=== PATIENT | female | born 1990 | race Hispanic/Latino ===

== ENCOUNTER 2016-04-28 14:59 | Emergency (ER) | payer MEDICAID, OTHER ==
[~2016-04-28 14:59] MED LIST: Sodium Chloride Irrig Solution 250 ML BOT ONE
[2016-04-28] MEDS ORDERED: Lidocaine 1% 20 ML MDV ONE (15:27)
[2016-04-28] MEDS ORDERED: Triple Antibiotic Oint 1 GM Packet ONE (15:27)
[2016-04-28] MEDS ORDERED: Adacel (T-DAP) 0.5 ML VIAL ONE (15:27)
--- NOTE | 2016-04-28 15:52 | RAD ---
LEFT FINGER 2 VIEWS: Date: 04/28/16 HISTORY: Laceration, left finger pain. FINDINGS/IMPRESSION: No fracture or dislocation is seen. No radiopaque foreign body is identified. POS: [id number]
== END 2016-04-28 16:20 | disposition home or self-care (01) ==
LOC: MADERS 14:59
DX: S61.213A Laceration without foreign body of left middle finger without damage to nail, initial encounter (principal); F32.9 Major depressive disorder, single episode, unspecified; F17.210 Nicotine dependence, cigarettes, uncomplicated; W45.8XXA Other foreign body or object entering through skin, initial encounter
CPT/HCPCS: 12001; 90471; 90715; J2001

== ENCOUNTER 2016-05-07 15:47 | Emergency (ER) | payer MEDICAID, SELFPAY | END 2016-05-07 16:12 | disposition home or self-care (01) | LOC: MADERS 15:47 | DX: S61.213D Laceration without foreign body of left middle finger without damage to nail, subsequent encounter (principal); W45.8XXD Other foreign body or object entering through skin, subsequent encounter | CPT/HCPCS: 99281 ==

== ENCOUNTER 2021-08-19 17:02 | Outpatient (CLI) | payer MEDICAID ==
[2021-08-19 17:53] LABS: #Basophils 0.1 thou/uL (0.0-0.2); #Eosinphils 0.1 thou/uL (0.0-0.7); #Lymphocytes 2.1 thou/uL (1.20-3.40); #Neutrophils 7.5 thou/uL (1.40-6.50); %Basophils 0.6 % (0.0-1.0); %Eosinophils 1.1 % (0.0-10.0); %Lymphocytes 19.5 % (21.0-51.0); %Monocytes 9.2 % (0.0-10.0); %Neutrophils 69.7 % (42.0-75.0); Hemoglobin 13.7 g/dL (12.0-16.0); Mean Corpuscular HGB CONC 32.2 g/dL (32.0-36.0); Mean Corpuscular Hemoglobin 28.2 pg (27.0-31.0); Mean Corpuscular Volume 87.8 fL (78.0-98.0); Mean Platelet Volume 7.9 fL (7.4-10.4); Platelet Count 298 thou/uL (130-400); RBC Distribution Width 13.5 % (11.5-14.5); Red Blood Cell (RBC) Count 4.83 mill/uL (4.20-5.40); White Blood Cell (WBC) Count 10.8 thou/uL (4.8-10.8)
[2021-08-19 17:59] LABS: Prothrombin Time 13.2 sec (12.0-14.7)
[2021-08-19 18:00] LABS: PTT 27.8 sec (22.9-36.1)
== END 2021-08-19 17:03 | disposition home or self-care (01) ==
LOC: MADLAB 17:02
PROVIDERS: ATTEND Family Medicine
DX: R23.3 Spontaneous ecchymoses (principal)
CPT/HCPCS: 85025; 85610; 85730